=== PATIENT | male | born 1975 | race Caucasian/White ===

== ENCOUNTER 2019-07-28 01:21 | Emergency (ER) | payer SELFPAY ==
[~2019-07-28] VITALS: Ht 182.9 cm; Wt 117.9 kg
[2019-07-28] MEDS ORDERED: CLONIDINE HCL 0.1 MG TAB ONE (01:37)
[2019-07-28] MEDS ORDERED: OXYMETAZOLINE HCL 0.05% NAS 1 SPRAY BTL ONE ×2 (01:38→01:45)
[2019-07-28] MEDS ORDERED: CLONIDINE HCL 0.2 MG TAB PO ONE (01:45)
--- NOTE | 2019-07-28 02:00 | NUR ---
NO BLEEDING NOTED AT THIS TIME
[2019-07-28 02:26] VITALS: BP 143/86
== END 2019-07-28 02:30 | disposition home or self-care (01) ==
LOC: FSED 01:21
DX: R04.0 Epistaxis (principal); I10 Essential (primary) hypertension; E01.8 Other iodine-deficiency related thyroid disorders and allied conditions
CPT/HCPCS: 99282

== ENCOUNTER 2021-01-11 16:47 | Emergency (ER) | payer SELFPAY ==
[~2021-01-11] VITALS: Ht 182.9 cm; Wt 122.5 kg
[2021-01-11] MEDS ORDERED: TYLENOL # 31 EA PO (17:34)
[2021-01-11] MEDS ORDERED: IBUPROFEN IB200 MG PO (17:34)
[2021-01-11 19:22] VITALS: BP 160/96
== END 2021-01-11 19:22 | disposition home or self-care (01) ==
LOC: FSED 16:59
DX: S43.402A Unspecified sprain of left shoulder joint, initial encounter (principal); S63.501A Unspecified sprain of right wrist, initial encounter; W13.2XXA Fall from, out of or through roof, initial encounter; Y93.89 Activity, other specified; Y92.008 Other place in unspecified non-institutional (private) residence as the place of occurrence of the external cause; I10 Essential (primary) hypertension; E03.9 Hypothyroidism, unspecified
CPT/HCPCS: 99283

== ENCOUNTER 2024-08-21 18:49 | Emergency (ER) | payer SELFPAY ==
[~2024-08-21] VITALS: Ht 182.9 cm; Wt 122.5 kg
[~2024-08-21 18:49] MED LIST: IBUPROFEN IB200 MG PO; TYLENOL # 31 EA PO
[2024-08-21 18:52] VITALS: PULSE 71; RESP 17; TEMP 98.2
[2024-08-21] MEDS: KETOROLAC TROMETHAMINE 60 MG/2 ML VIAL IM ONE (19:13)
[2024-08-21 20:20] VITALS: BP 177/93; PULSE 79; RESP 17; TEMP 98; O2SAT 100
[2024-08-21] MEDS ORDERED: HYDROCODON-ACE1 EA11 PO (20:20)
[2024-08-21] MEDS ORDERED: ONDANSETRON ODT4 MG PO (20:20)
== END 2024-08-21 20:28 | disposition home or self-care (01) ==
LOC: ER 18:59
DX: M79.631 Pain in right forearm (principal); M79.89 Other specified soft tissue disorders; I10 Essential (primary) hypertension; E03.9 Hypothyroidism, unspecified
CPT/HCPCS: 73090; 93931; 93971; 99283; J1885